=== PATIENT | female | born 1995 | race Caucasian/White ===

== ENCOUNTER 2024-07-30 18:31 | Emergency (ER) | payer MEDICAID, SELFPAY ==
--- NOTE | 2024-07-30 18:35 | EDNOTE_ITS ---
ED Overdose RME/HPI General Chief Complaint: Overdose Stated Complaint: OVERDOSE Time Seen by Provider: 07/30/24 18:36 Arrival date/time: 07/30/24 18:31 RME / HPI RME / HPI Narrative: Dr. Infante?s Main ED Evaluation: 28yo female with a history of asthma, depression, anxiety BIBA from home presents to the ED as a STAT medical for a chief complaint of an overdose. Patient was seen by me immediately upon arrival at 1831. Per EMS, patient was last seen 20-25 minutes CAD CAM PROGRAMMER, reporting family found the patient down in the bathroom. Family endorsed they found an empty bottle of the patient's Celexa 20mg next to her. Blood sugar en route was 135. Blood pressure was in the 70s systolically, so EMS started a LR bolus. EMS started bagging the patient en route after she went into respiratory arrest, but she did not lose a pulse. On ED arrival, patient is awake and alert, but is not answering any questions. Full ROS is unobtainable due to the patient's not answering questions. Related Data Allergies Allergy/AdvReac Type Severity Reaction Status Date / Time NKA Allergy Uncoded 07/30/24 19:01 Review of Systems Review of Systems ROS Unobtainable: other (unobtainable due to the patient not answering any questions) ED Exam Narrative Physical exam: GENERAL APPEARANCE: awake, alert, not answering questions, has vomit on her clothing, NPA in place, actively being bagged by EMS VITALS: All vitals were reviewed and the pulse ox is 100% via oxy mask, which is abnormal according to my interpretation. HEENT: Normocephalic, atraumatic; pupils equal, round, reactive to light; EOMI; mucous membranes pink, moist; oropharynx clear NECK: Supple LUNGS: CTABL; no wheezes, no rales, no rhonchi HEART: Regular rate, regular rhythm; normal S1, S2; no murmurs ABDOMEN: non distended; normal BS; soft, no tenderness, no guarding, no rebound; no masses, no organomegaly, no hernia BACK: no CVA tenderness EXTREMITIES: atraumatic; no edema NEUROLOGIC: awake; alert, is not answering questions; cranial nerves II-XII grossly intact; no focal sensory or motor deficits SKIN: warm, dry, normal color; no rashes Course Course Course Narrative: Patient was placed in observation for treatment and monitoring of psychiatric symptoms, at 1835 07/31/2024. Symptoms consist of suicidal ideation and depress ion. Treatment plan includes psychiatric consult, reassessments, and possible placement into psychiatric facility. 0538: Patient is medically clear for crisis evaluation. 0600: Care signed out to Dr. Valdovinos (emergency physician). Past medical, surgical, social and family history reviewed. Vitals and home medications reviewed. Results and treatment plan discussed. They will assume the care of the patient at this time and will follow the patient, pending crisis evaluation. At this time, observation has ended. Total observation time: 11.5 hours. Quality Measures none Orders Category Date Time Status 1799 Psychiatric Hold NOW Care 07/30/24 21:00 Ordered Graphics Manager NOW Care 07/30/24 18:36 Active EKG (ED ONLY) *Do not use* NOW Care 07/30/24 18:36 Completed In and Out Catheter X1 Care 07/30/24 18:49 Completed EKG (ED Only) Stat Exams 07/30/24 18:36 Draft XR chest 1V portable Stat Exams 07/30/24 18:36 Completed ABG [Arterial Blood Gas] Stat Lab 07/30/24 18:57 Completed Acetaminophen Stat Lab 07/30/24 18:46 Completed Alcohol, Blood Medical Stat Lab 07/30/24 18:46 Completed B-Type Natriuretic Peptide Stat Lab 07/30/24 19:49 Completed CBC Stat Lab 07/30/24 18:46 Completed Comprehensive Metabolic Panel Stat Lab 07/30/24 18:46 Completed Drug Screen,Urine Stat Lab 07/30/24 18:46 Completed Lipase Stat Lab 07/30/24 18:46 Completed Magnesium Stat Lab 07/30/24 18:46 Completed Salicylate Stat Lab 07/30/24 18:46 Completed Troponin I Stat Lab 07/30/24 18:46 Completed Ondansetron Inj [Zofran Inj] Med 07/30/24 18:37 Discontinued 4 mg IVP X1 ONE Sodium Chloride 0.9% 1000 ml [Ns] 1,000 ml Med 07/30/24 18:36 Discontinued IV 999 mls/hr Vital Signs Vital signs: Vital Signs Pulse Rate 98 07/30/24 18:36 Overdose MDM Narrative MDM Narrative:: Scribe Attestation: 07/30/24 - I, Ayanna Kam, am scribing for and in the presence of Dr. Infante. 2043: Patient is not AAOx4, states she does not know why she took 15 pills of her Celexa. She is currently saturating at 95% on room air. I placed the patient on a 1799 hold. Per poison control, we should monitor the patient for 12 hours, get a repeat EKG in 6 hours, and keep her on the claim attorney. Patient data External records reviewed:: [facility] previous records (Per chart review, patient has no previous ED visits or admissions to this facility.) Clinical information provided by:: EMS Social determinants that could affect healthcare access:: mental health Patient has the following chronic illnesses:: asthma, depression, anxiety How is presenting disease/condition affected by chronic disease/condition?: uneffected by Evaluation data The following diagnostics were reviewed and interpreted by me:: lab results and EKG tracing(s) Lab and/or radiology exams considered but not ordered:: none Interpretation Summary: WBC 17.2, ABG shows normal pH, normal CO2, and normal HCO3; CMP normal, Troponin normal, BNP normal, UDS negative, Acetaminophen negative, Salicylates negative, Blood Alcohol negative. EKG done at 1908, NSR, rate of 89, normal axis, normal intervals, QRS: 84. QTc: 411, no acute ST-T changes, according to my interpretation. Repeat EKG done at 0105, NSR, rate of 70, mild low voltage, T wave inversion in lead III, V1, and V2, diffuse flattening of ST segments in various leads, according to my interpretation. Medications / Prescriptions Medications or Prescriptions considered but not ordered:: none Medication administrations:: Medication Administration History Discontinued Medications Sodium Chloride (Ns) 1,000 mls @ 999 mls/hr IV .Q1H1M ONE Stop: 07/30/24 19:36 Last Infusion: 07/30/24 20:03 Dose: Infused Documented By: Admin: 07/30/24 19:02 Dose: 999 mls/hr Documented By: DUY Ondansetron HCl (Ondansetron Inj 2 Mg/Ml Inj 2 Ml) 4 mg IVP X1 ONE; Protocol Stop: 07/30/24 18:38 Last Admin: 07/30/24 19:28 Dose: 4 mg Documented By: GIL see above Consultations Consultation(s) initiated? (list below): No Diagnosis Overdose Differential Diagnosis: accidental drug ingestion and other (SI, intentional overdose) Most likely diagnosis given after review of the tests above:: intentional overdose Admission Indicated Admission indicated?: not indicated Admission Request Was there a request for admission?: No Disposition Plan Disposition Plan: other (specify) (Signed out to Dr. Valdovinos at 0600 pending crisis evaluation.) Critical Care Time Critical Care Time Critical Care Time: Yes Total Critical Care Time (min.): 40 Attestation: The high probability of sudden, clinically significant deterioration in the patient?s condition required the highest level of my preparedness to intervene urgently. The services I provided to this patient were to treat and/or prevent clinically significant deterioration. Services included the following: chart data review, reviewing nursing notes and/or old charts, documentation time, outreach consultant collaboration regarding findings and treatment options, medication orders and management, direct patient care, vital sign assessments and ordering, interpreting and reviewing diagnostic studies and lab tests. Aggregate critical care time includes only time during which I was engaged in work directly related to the patient?s care, as described above, whether at bedside or elsewhere in the Emergency Department. It did not include time spent performing other reported procedures or the services of residents, students, nurses or physician assistants. Discharge Plan Plan Patient condition on transfer: Stable Problem List Clinical Impression: Intentional overdose of citalopram Patient/Caregiver Discharge Instructions Print Language: Pashto
[2024-07-30 18:36] VITALS: PULSE 108; PULSE 98; RESP 18; O2SAT 99
--- NOTE | 2024-07-30 18:36 | XR_ITS ---
Examination: AP chest single view TECHNIQUE: AP portable sitting chest single view Date and time: July 30, 2024 1900 hours INDICATIONS: Chest pain today. FINDINGS: Normal heart size Lungs are clear. The osseous structures are intact IMPRESSION: No active disease
--- NOTE | 2024-07-30 18:36 | EKG_ITS ---
[facility] Test Date: 2024-07-30 Pat Name: JULIANNE HURTADO Department: Room: - Gender: Female Consumer Analyst: : 1995 Requested By: Dasia Madrigal Order Number: [id number] Reading MD: Dasia Madrigal Measurements Intervals [place] Rate: 89 P: 42 ME: 141 QRS: 57 QRSD: 84 T: 32 QT: 365 QTc: 444 Interpretive Statements SINUS RHYTHM LOW QRS VOLTAGE IN PRECORDIAL LEADS [QRS DEFLECTION < 1.0 mV IN CHEST LEADS] No previous ECG available for comparison /store/S0/[id number].pdf
[2024-07-30 18:43] VITALS: BMI 29.0
[2024-07-30 18:44] VITALS: BP 138/66; PULSE 99; RESP 18; TEMP 37.2; O2SAT 100
--- NOTE | 2024-07-30 18:54 | PC.NURSE ---
Pt BIBA after being found down by father in the restroom with an empty bottle citalipram 20mg. When paramedics arrived pt was unresponsive to sternal rub pt was in the 70's % oxygen saturation and 70's B/P pt was getting bagged by ambubag by EMS at [facility]ival to ER. MD at bedside and pt vomited pinkish vomit. pt with right nasal tromplet placed by EMS, pt on 99% on 15L oxymask at this time.
[2024-07-30 19:02] LABS: Basophils % (Auto) 0 % (0-2.5); Eosinophils # (Auto) 0.2 Thou/mm3 (0.0-0.5); Eosinophils % (Auto) 1 % (0-10); Hematocrit 38.4 % (36.0-46.0); Hemoglobin 13.6 g/dL (12.0-16.0); Immature Granulocytes % (Auto) 0 % (0-0); Immature Granulocytes Auto 0.06 Thou/mm3 (0.00-0.00); Lymphocytes # (Auto) 2.7 Thou/mm3 (1.0-4.8); Lymphocytes % (Auto) 16 % (10-50); Mean Corpuscular HGB Conc 35.4 g/dl (31.0-37.0); Mean Corpuscular Hemoglobin 28.8 pg (25.0-35.0); Mean Corpuscular Volume 81 fL (80-100); Monocytes # (Auto) 0.7 Thou/mm3 (0.0-0.8); Monocytes % (Auto) 4 % (0-12); Neutrophils # (Auto) 13.5 Thou/mm3 (1.8-7.7); Neutrophils % (Auto) 79 % (37-80); Nucleated Red Blood Cell % 0 /100 WBC (0); Platelet Count 264 Thou/mm3 (140-440); RDW Standard Deviation 36.3 fL (36.4-46.3); Red Blood Count 4.73 Miln/mm3 (4.00-5.20); White Blood Count 17.2 Thou/mm3 (3.6-11.0)
[2024-07-30] MEDS: SODIUM CHLORIDE 0.9% 1000 ML 1,000 ML 999 ML IV (19:02)
[2024-07-30 19:04] LABS: Base Excess -3 (-3-3); HCO3 22 mEq/L (20-26); Inspired O2, VO2 Liters 15 L/min; O2 Saturation 101 % (91-98); PCO2 37 mmHg (32.0-48.0); PO2 324 mmHg (83-108); pH, Arterial 7.38 (7.35-7.45)
[2024-07-30 19:05] LABS: Allen Test Performed/OK; Puncture Site Right Radial
[2024-07-30 19:22] LABS: Amphetamine/Methamp Scrn,U Negative (Negative); Barbiturate Screen,Urine Negative (Negative); Benzodiazepines Screen,Urine Negative (Negative); Benzoylecgonine Screen, Ur Negative (Negative); Fentanyl Screen,Urine Negative (Negative); Opiate Screen,Urine Negative (Negative); THC Screen,Urine Negative (Negative)
--- NOTE | 2024-07-30 19:23 | PC.NURSE ---
Addendum entered by Meagan Myles RN 07/30/24 22:09: If QTC > 500 milliseconds Original Note: Called poison control and spoke with Renato. Per Renato, most common side effects of celexa include supervisor advertising dispatch clerks depression, seizures, hypotension, and qt prolongation. Recommended to keep pt on residential monitor for minimum of 12 hrs, and repeat initial EKG after 6 hrs to monitor for qtc worsening. If QTC greater than andres seconds, advised to give 1-2 gm of mag. Advised to continue to give o2 support as needed and obtain baseline BMP, tylenol, ETOH and utox. No further recommendations advised.
[2024-07-30] MEDS: ONDANSETRON INJ 2 MG/ML INJ 2 ML 4 MG IVP (19:28)
[2024-07-30 19:32] LABS: Acetaminophen < 2.0 mcg/mL (10.0-20.0); Alanine Aminotransferase 18 U/L (10-49); Albumin, Serum 3.6 gm/dL (3.5-5.0); Albumin/Globulin Ratio 2.1 (1.2-2.2); Alcohol, Blood Medical < 3.0 mg/dL (0-10.0); Alkaline Phosphatase 72 U/L (46-116); Anion Gap 12 (7-16); BUN/Creatinine Ratio 13 Ratio (12-20); Bilirubin,Total 0.2 mg/dL (0.3-1.2); Blood Urea Nitrogen 8 mg/dL (9-23); Calcium 8.6 mg/dL (8.3-10.6); Calcium (Corrected) 8.9 mg/dL (8.5-10.1); Chloride 109 mMol/L (98-107); Creatinine (Component) 0.6 mg/dL (0.6-1.3); Estimated Creatinine Clearance 153.1 mL/min (>60); Globulin 1.7 gm/dL (2.3-3.5); Glucose 102 mg/dL (74-106); Lipase 29 U/L (12-53); Magnesium 1.6 mg/dL (1.6-2.6); Osmolality,Calculated 281 (275-295); Potassium 4.1 mMol/L (3.4-5.1); Salicylate < 3.0 mg/dL; Sodium 142 mMol/L (136-145); Total Protein 5.3 gm/dL (5.7-8.2); Troponin I < 0.002 ng/mL (0.0-0.045); eGFR > 60 See Note
--- NOTE | 2024-07-30 20:33 | PC.NURSE ---
Pt is awake, alert, answering questions. Denies SI/HI/AH/VH. States she remembers taking celexa, which is one of pt's normal medications, and estimates she took the entire bottle ~50 pills. States it was an accident . Denies that this was a suicide attempt or that anyone forced her to take them. Pt also denies any history of suicide. Pt asking to go home.
[2024-07-30 20:36] VITALS: BP 145/75; PULSE 89; RESP 16; O2SAT 95
[2024-07-30 21:16] LABS: B-Type Natriuretic Peptide < 20 pg/mL (0-100)
[2024-07-30 21:43] VITALS: BP 122/83; PULSE 88; RESP 16; TEMP 37.2; O2SAT 95
[2024-07-30 23:22] VITALS: BP 109/74; PULSE 81; RESP 18; O2SAT 94
--- NOTE | 2024-07-30 23:24 | PC.NURSE ---
Spoke with Issa from poison control and provided update on pt condition. Per Issa, repeat EKG at 6 hr ismael as previously stated. But no further instructions given. Poison control to call back in AM.
[2024-07-31 02:22] VITALS: BP 112/71; PULSE 93; RESP 19; O2SAT 95
[2024-07-31 05:00] VITALS: BP 106/73; PULSE 85; RESP 16; O2SAT 97
[2024-07-31 05:33] VITALS: BP 119/73; PULSE 74; RESP 16; TEMP 37.3; O2SAT 96
--- NOTE | 2024-07-31 06:45 | EDNOTE_ITS ---
Emergency Room Addendum Addendum Narrative: 0600: Care assumed from Dr. Infante, the previous shift emergency physician. Past medical, surgical, social and family history reviewed. Vitals and home medications reviewed. I will assume the care of the patient at this time, pending mental health evaluation. Patient had been medically cleared by previous physician. Please refer to the emergency department record for history and examination from initial visit.?The following addendum documentation note is intended to reflect any pending information, findings, or radiology results not included in the patient?s initial chart. EMS notes reviewed by me. Nursing notes reviewed by me. Vital signs reviewed by me. 0710: Patient has been evaluated by social service manager and placed the patient on a 5150 hold. At this time pending LPS facility placement. 1030: Patient accepted by Dr. Pimentel at [facility]. 1300: EMS here to transfer the patient. Patient has remained stable through ED course and was transferred in stable condition.
--- NOTE | 2024-07-31 07:25 | PC.CC ---
Addendum entered by Kylie Saeed 07/31/24 10:38: Pt accepted to [facility] by Intake person Azael; [id number] [place] [id number] Pimentel, pt will go to Unit[facility]. Nurse to Nurse [phone] or call [phone] between [phone]. Transportation will be after 1200. Addendum entered by Kylie Saeed 07/31/24 09:53: ASW received a call from [facility] who would like to receive more details regarding pt and would like to speak to the RN. RN to call back to [phone]. Addendum entered by Kylie Saeed 07/31/24 09:14: Per RNs note, pt admitted to taking about 50 pills of Celexa 20 mgs. Poision Control was contacted. See notes from RN regarding Poison Control recs. Addendum entered by Kylie Saeed 07/31/24 08:19: ASW staffed this with HALI HUERTAS and a decision was made to place pt on a 5150 Hold and search for LPS placement. ASW informed ER provider and he agrees with the decision. RN is aware. ASW will search for LPS placement. Original Note: KOLE Saeed met with patient [id number] to complete assessment in ER Room 3. ASW introduced self, role, and reason for assessment. ASW disclosed limits of confidentiality as well. Patient appeared groggy, was awakened to speak with but she was unable to become fully alert. Pt was oriented and is aware of the reasons why she is at the ER; however, pt refused to communicate. Patient mood appeared depressed; her behavior appeared disinhibited with flat affect. No signs of delusions, paranoid or AVH. Pt was BIBA with cardiac arrest due to overdose on her medications. Per ER providers notes, but was in in cardiac arrest, brought in on Code Blue, but had a pulse. ASW proceeded to ask the pt questions as to why she was brought into the ER and if she remembered what happened. Pt confirmed that she remembers what occurred, and stated, I was just being dumb. Pt was asked if she had ever tried to harm herself or in her life in the past but refused to say how. Pt denies h/o mental health hospitalizations or being on a 5150 Hold. Civil Engineering Technician explained the process of a safety plan and what needs to be in place for a safety plan. Civil Engineering Technician explained the reason for a 5150 Hold and explained that if she is placed on a hold telegraphic typewriter operator will search for MH hospitalization. Pt reported that her mother found her unconscious, as she was told by her family. This was the only information that telegraphic typewriter operator was able to obtain, as pt refused to communicate. Pt kept on saying, I'm better now and was just being dumb. Pt reported she wants to go home. Pt states she will not try to harm herself or end her life. Civil Engineering Technician explained that the worry is the fact that she attempted to overdose, which caused her to go into cardiac arrest. Pt could not tell telegraphic typewriter operator if she would attempt to end her life again, but just stated, I want to go home. ASW contacted collateral Jyotichanell Del Rio, who is pts grandmother and raised her since age 3. According to Jyoti, she reported that pt has plenty of family support at home and reported that this is the first time something like this has ever occurred. Jyoti reported that of late, the pt has been depressed due to not being able to find a job and personal issues with her girlfriend. Jyoti reported that this is the worst she has ever seen the pt and stated that her norm is typically happy, joking and playing with the kids at home. Jyoti reported that the relationship between the pt and her girlfriend is not good and per Jyoti, she feels this is a large part as to the pts untreated depression. Jyoti reported that pt is on probation but does not know the name of the chief digital media officer, but stated her probation is from [facility]. Jyoti reported that [facility] and is [facility]. Civil Engineering Technician explained that if the pt goes on a 5150 Hold, the next step would be to search for MH hospitalization placement, and informed Jyoti this was also explained to the pt. Jyoti supports the idea of hospitalization placement due to the circumstances of what led pt to be in the ER.
[2024-07-31 08:18] VITALS: BP 107/55; PULSE 83; RESP 20; TEMP 37.1; O2SAT 95
--- NOTE | 2024-07-31 10:04 | EKG_ITS ---
[facility] Test Date: 2024-07-31 Pat Name: JULIANNE HURTADO Department: Room: - Gender: Female Workforce Specialist: : 1995 Requested By: Zachary Carney Order Number: [id number] Reading MD: Zachary Carney Measurements Intervals [place] Rate: 73 P: 1 MI: 129 QRS: 56 QRSD: 82 T: 20 QT: 384 QTc: 425 Interpretive Statements SINUS RHYTHM LOW QRS VOLTAGE IN PRECORDIAL LEADS [QRS DEFLECTION < 1.0 mV IN CHEST LEADS] Compared to ECG 07/30/2024 19:08:34 No significant changes /store/S0/[id number]/[id number].pdf
[2024-07-31 11:43] VITALS: BP 116/68; PULSE 77; RESP 20; TEMP 37.2; O2SAT 95
--- NOTE | 2024-07-31 12:53 | PC.NURSE ---
Report given to Mickey at [facility] and to [facility] [facility] who are transferring patient. Patient taken at 1255.
== END 2024-07-31 12:58 ==
PROVIDERS: Emergency Provider Emergency Medicine; PCP Family Medicine
DX: Z04.6 Encounter for general psychiatric examination, requested by authority (principal); T43.222A Poisoning by selective serotonin reuptake inhibitors, intentional self-harm, initial encounter; R09.2 Respiratory arrest; F32.A Depression, unspecified; F41.9 Anxiety disorder, unspecified; R94.31 Abnormal electrocardiogram [ECG] [EKG]; R07.9 Chest pain, unspecified; Z75.1 Person awaiting admission to adequate facility elsewhere
CPT/HCPCS: 51701; 36415; 36600; 71045; 80053; 80307; 80320; 80329; 82803; 83690; 83735; 83880; 84484; 85025; 93005; 96127; 96361; 96374; 99291; J2405; J7030; G0480